=== PATIENT | male | born 1955 | race Caucasian/White ===

== ENCOUNTER 2020-06-21 15:41 | Emergency (ER) | payer OTHER, SELFPAY ==
[2020-06-21 16:05] VITALS: BP 138/86; PULSE 96; RESP 19; TEMP 37.9; O2SAT 95
--- NOTE | 2020-06-21 16:07 | PC.NURSE ---
PATIENT TESTED POSITIVE FOR COVID 19 PAST TUESDAY, CONTINUES WITH COUGH. CHEST TIGHTNESS.
--- NOTE | 2020-06-21 16:11 | XR_ITS ---
EXAMINATION: PORTABLE CHEST 1 VIEW CLINICAL INFORMATION: covid +, per pt low O2 . COMPARISON: No recent pertinent prior studies are available for comparison. TECHNIQUE: Portable frontal view of the chest was obtained. FINDINGS: The lungs are well expanded. No focal infiltrate, effusion, edema, or pneumothorax. Cardiac and mediastinal silhouettes are within normal limits for technique. No acute bony abnormality seen. Nonspecific bony remodeling of the posterior left sixth rib is seen. Etiology of this is uncertain. XR/XR chest 1V IMPRESSION: No evidence of acute disease. Bony remodeling of the posterior left sixth rib is of uncertain etiology but could be clinically correlated.
--- NOTE | 2020-06-21 16:12 | ED_ITS ---
HPI - URI/Sore Throat General Chief Complaint: Upper Respiratory Symptoms Stated Complaint: covid symptoms Time Seen by Provider: 06/21/20 15:59 Source: patient and family () Mode of arrival: ambulatory Limitations: no limitations History of Present Illness HPI Narrative: Patient comes to the ED c/o cough. Patient states that he tested positive for COVID-19 approximately 6 days ago and his the tube. Patient states he has been coughing, states has an oxygen meter which showed that he had an oxygen saturation of 89-90%. Patient's also tested positive for COVID- 19. MD elicited complaint: fever and cough Related Data Previous Rx's Medication Instructions Recorded benzonatate [Tessalon Perles] 100 mg PO TID PRN #14 cap 06/21/20 Allergies Allergy/AdvReac Type Severity Reaction Status Date / Time No Known Allergies Allergy Verified 06/21/20 16:10 Review of Systems Review of Systems: Constitutional : Patient complaining of fever, chills, fatigue, generalized malaise ENT/Mouth : No Hearing loss, No Ear Pain, No Nasal Congestion, No Sinus Pain, No Hoarseness, No sore throat, No Rhinorrhea, No Swallowing Difficulty Eyes: No Eye Pain, No Swelling, No Redness, No Foreign Body, No Discharge, No Vision Changes Cardiovascular : No Chest Pain, No SOB, No Dyspnea on Exertion, No Orthopnea, No Edema, No Palpitations Respiratory : Complaining of dry Cough, oxygen saturation 89-90% on room air patient, No Wheezing, No Smoke Exposure, No Dyspnea Gastrointestinal : No Nausea, No Vomiting, No Diarrhea, No Constipation, No abdominal Pain, No Hematochezia, No Melena Genitourinary : no irregular bleeding, No Dysuria, No Urinary Frequency, No Hematuria, No Urinary Incontinence, No Urgency, No Flank Pain, No Urinary Flow Changes, No Hesitancy Musculoskeletal : No joint pain, No Myalgias, No Joint Swelling Skin : No Skin Lesions, No rash Neuro : No Weakness, No Numbness, No Paresthesias, No Loss of Consciousness, No Dizziness, No Headache Psych : No Anxiety/Panic, No Depression, No SI/HI/AH/VH, No Social Issues, Heme/Lymph: No Bruising, No Bleeding,No Lymphadenopathy Endocrine : No Polyuria, No Polydipsia, No Temperature Intolerance [facility] Past Medical History Medical History (Updated 06/21/20 @ 16:38 by Selina Sharma MD) HTN (hypertension) Social History Social History Advance Directives: No Advance Directives Information Provided: No Physical Exam Vital Signs: Vital Signs: Last Vital Signs Temp 100.3 F 06/21/20 16:05 Pulse 96 06/21/20 16:05 Resp 19 06/21/20 16:05 BP 138/86 06/21/20 16:05 Pulse Ox 95 06/21/20 16:05 Appearance: Alert. Oriented X3. No acute distress. Well-appearing, well- hydrated Eyes: Pupils equal, round and reactive to light. ENT: Pharynx normal. Neck: Normal inspection. Neck supple. No lymph nodes noted. No crepitus CVS: Normal heart rate and rhythm. Pulses normal. Normal S1 and S2 Respiratory: No respiratory distress. Breath sounds normal. No Wheezing. No rales , actively coughing Abdomen: Soft and nontender. No rigidity. No distention. good BS x4 Skin: Skin warm and dry. Normal skin color. Normal skin turgor. Extremities: No lower extremity edema. No lower extremity edema. No Laceration s. No Rash Neuro: Oriented X 3. No motor deficit. No sensory deficit. Moving all extermities. No slurred speech. Course Course Course Narrative: Patient has a temperature of 100.3 degrees, oxygen saturation 95-97% on room air. I discussed with the patient that he might have had a reading error from his home device. His x-rays show no evidence of acute disease. At this time, pulmonary embolism is not suspect MDM - URI/Sore Throat Imaging Data Chest x-ray: Radiologist's impression: The lungs are well expanded. No focal infiltrate, effusion, edema, or pneumothorax. Cardiac and mediastinal silhouettes are within normal limits for technique. No acute bony abnormality seen. Nonspecific bony remodeling of the posterior left sixth rib is seen. Etiology of this is uncertain. XR/XR chest 1V IMPRESSION: No evidence of acute disease. Bony remodeling of the posterior left sixth rib is of uncertain etiology but could be clinically correlated. Discharge Plan Discharge Clinical Impression: Acute bronchitis due to COVID-19 virus Patient Disposition: Home, Self-Care Instructions: Acute Bronchitis (ED) Additional Instructions: Please remain self isolated at home until you complete 14 days of isolation. Wear your mask at all times. Please follow-up with your primary care physician tomorrow. If you have any worsening or new symptoms, please return to the emergency room or call 911 Prescriptions: New benzonatate [Tessalon Perles] 100 mg capsule 100 mg PO TID PRN (Reason: cough) Qty: 14 RF: 0
[2020-06-21] MEDS: Acetaminophen 325 MG TABLET 650 MG PO (16:29)
[2020-06-21] MEDS: Benzonatate 100 MG CAPSULE PO (16:29)
== END 2020-06-21 17:00 | disposition home or self-care (01) ==
PROVIDERS: Emergency Provider Emergency Medicine
DX: U07.1 COVID-19 (principal)
CPT/HCPCS: 71045; 99283